=== PATIENT | male | born 1970 | race Caucasian/White ===

== ENCOUNTER 2016-11-14 07:10 | Emergency (ER) | payer OTHER ==
[2016-11-14 07:51] LABS: BASOPHIL 1.2 % (0-2); EOSINOPHIL 2.5 % (0-5); HCT 47.2 % (42.0-52.0); HGB 16.3 g/dl (13.2-18.0); LYMPHOCYTE 30.8 % (15-48); MCH 29.5 pg (25.0-31.0); MCHC 34.5 g/dL (32.0-36.0); MCV 85.4 fL (78.0-100.0); MONOCYTE 5.6 % (0-12); MPV 10.5 fL (6.0-9.5); NEUTROPHIL 59.9 % (41-80); PLT 205 K/uL (150-400); RBC 5.53 M/uL (4.70-6.00); RDW 14.1 % (11.5-14.0); WBC 7.5 K/uL (4.0-10.5)
[2016-11-14 08:06] LABS: CREATININE 1.2 mg/dL (0.7-1.2); POTASSIUM 4.5 mmol/L (3.5-5.1)
[2016-11-14 08:43] LABS: BILIRUBIN NEGATIVE (NEGATIVE); BLOOD 3+ Ery/uL (NEGATIVE); CLARITY CLEAR (CLEAR); COLOR YELLOW (YELLOW); GLUCOSE (U) NORMAL (NORMAL); KETONE (U) NEGATIVE (NEGATIVE); LEUKOCYTES NEGATIVE Leu/uL (NEGATIVE); NITRITE NEGATIVE (NEGATIVE); PROTEIN NEGATIVE (NEGATIVE); UROBILINOGEN 0.2 mg/dL (0.2-1.0); pH 6.5 (5.0-9.0)
[2016-11-14 08:50] LABS: BACTERIA 1+; URINARY WBC RARE
== END 2016-11-14 09:35 | disposition home or self-care (01) ==
LOC: FER 07:10
PROVIDERS: Internal Medicine
DX: N13.2 Hydronephrosis with renal and ureteral calculous obstruction (principal); N50.811 Right testicular pain; Z90.49 Acquired absence of other specified parts of digestive tract
CPT/HCPCS: 36415; 80048; 81001; 85025; 87088; J1885

== ENCOUNTER 2016-12-17 23:23 | Emergency (ER) | payer OTHER ==
[2016-12-18 00:01] LABS: BASOPHIL 0.1 % (0-2); EOSINOPHIL 0 % (0-5); HCT 47.2 % (42.0-52.0); HGB 16.6 g/dl (13.2-18.0); LYMPHOCYTE 9.2 % (15-48); MCHC 35.2 g/dL (32.0-36.0); MCV 82.4 fL (78.0-100.0); MONOCYTE 7.1 % (0-12); MPV 10.8 fL (6.0-9.5); NEUTROPHIL 83.6 % (41-80); PLT 263 K/uL (150-400); RBC 5.73 M/uL (4.70-6.00); RDW 13.9 % (11.5-14.0); WBC 16.4 K/uL (4.0-10.5)
[2016-12-18 00:21] LABS: ALBUMIN 4.8 g/dL (3.5-5.0); BILIRUBIN - TOTAL 0.5 mg/dL (0.1-1.0); CREATININE 1.2 mg/dL (0.7-1.2); GLOBULIN (CALCULATION) 3.1 g/dL (2.2-4.2); POTASSIUM 4.5 mmol/L (3.5-5.1); TOTAL PROTEIN 7.9 g/dL (6.4-8.3)
[2016-12-18 01:13] LABS: BILIRUBIN NEGATIVE (NEGATIVE); BLOOD 3+ Ery/uL (NEGATIVE); CLARITY CLEAR (CLEAR); COLOR YELLOW (YELLOW); GLUCOSE (U) NORMAL (NORMAL); KETONE (U) NEGATIVE (NEGATIVE); LEUKOCYTES NEGATIVE Leu/uL (NEGATIVE); NITRITE NEGATIVE (NEGATIVE); PROTEIN TRACE (LOW) mg/dL (NEGATIVE); SPECIFIC GRAVITY 1.015 (1.001-1.030); UROBILINOGEN 0.2 mg/dL (0.2-1.0)
[2016-12-18 01:19] LABS: SQUAMOUS EPITHELIAL CELLS RARE; URINARY RBC 20-50; URINARY WBC RARE
== END 2016-12-18 02:09 | disposition home or self-care (01) ==
LOC: FER 23:23
PROVIDERS: Emergency Medicine Emergency Medical Services
DX: N20.1 Calculus of ureter (principal); R39.11 Hesitancy of micturition; E86.9 Volume depletion, unspecified; Z87.442 Personal history of urinary calculi; Z90.49 Acquired absence of other specified parts of digestive tract; Z98.890 Other specified postprocedural states
CPT/HCPCS: 36415; 74000; 80053; 81001; 85025; J1170; J1885; J2405

== ENCOUNTER 2016-12-19 05:54 | Emergency (ER) | payer OTHER ==
[2016-12-19 06:52] LABS: BASOPHIL 0.5 % (0-2); EOSINOPHIL 1.9 % (0-5); HCT 45.3 % (42.0-52.0); HGB 15.6 g/dl (13.2-18.0); MCH 29.1 pg (25.0-31.0); MCHC 34.4 g/dL (32.0-36.0); MCV 84.5 fL (78.0-100.0); MONOCYTE 10.1 % (0-12); MPV 11.2 fL (6.0-9.5); NEUTROPHIL 54.5 % (41-80); PLT 208 K/uL (150-400); RBC 5.36 M/uL (4.70-6.00); WBC 7.8 K/uL (4.0-10.5)
[2016-12-19 07:06] LABS: ALBUMIN 4.7 g/dL (3.5-5.0); BILIRUBIN - TOTAL 0.5 mg/dL (0.1-1.0); CREATININE 1.5 mg/dL (0.7-1.2); TOTAL PROTEIN 7.7 g/dL (6.4-8.3)
[2016-12-19 07:22] LABS: BILIRUBIN NEGATIVE (NEGATIVE); BLOOD 3+ Ery/uL (NEGATIVE); CLARITY CLEAR (CLEAR); COLOR YELLOW (YELLOW); GLUCOSE (U) NORMAL (NORMAL); KETONE (U) NEGATIVE (NEGATIVE); LEUKOCYTES NEGATIVE Leu/uL (NEGATIVE); NITRITE NEGATIVE (NEGATIVE); PROTEIN TRACE (LOW) mg/dL (NEGATIVE); SPECIFIC GRAVITY 1.015 (1.001-1.030); UROBILINOGEN 0.2 mg/dL (0.2-1.0)
[2016-12-19 07:27] LABS: BACTERIA TRACE; URINARY WBC RARE
== END 2016-12-19 08:48 | disposition home or self-care (01) ==
LOC: FER 05:54
PROVIDERS: Internal Medicine
DX: N13.2 Hydronephrosis with renal and ureteral calculous obstruction (principal); Z87.442 Personal history of urinary calculi; Z98.890 Other specified postprocedural states
CPT/HCPCS: 36415; 80053; 81001; 85025; J1170; J2270; J2405